=== PATIENT | female | born 1955 | race Two or more races ===

== ENCOUNTER 2017-11-16 12:44 | Observation (INO) | payer OTHER, MEDICAID ==
[~2017-11-16] VITALS: Ht 157.5 cm; Wt 122.5 kg
[2017-11-16 13:26] LABS: Basophils # (auto) 0 uL; Basophils % (auto) 0.2 % (0.0-2.0); Eosinophils # (auto) 0 uL; Hematocrit 42.8 % (36.0-46.0); Monocytes # (auto) 0.5 uL; Neutrophils # (auto) 8.6 uL
[2017-11-16 13:28] LABS: Eosinophils % (auto) 0.3 % (0.0-7.0); Lymphocytes # (auto) 0.7 uL; Lymphocytes % (auto) 7.3 % (10.0-50.0); Mean Corpuscular Hemoglobin 26.6 pg (28.0-32.0); Mean Corpuscular Hgb Conc. 32.8 g/dL (32.0-36.0); Mean Corpuscular Volume 80.9 fL (80.0-100.0); Monocytes % (auto) 5.2 % (0.0-12.0); Platelet Count (auto) 150 10^3/uL (140-450); Red Blood Cells 5.29 10^6/uL (4.0-5.20); Red Cell Distribution Width 14.4 % (11.8-14.3); White Blood Cell 9.9 10^3/uL (4.4-10.8)
[2017-11-16 13:50] LABS: Alanine Aminotransferase 161 U/L (13-56); Albumin 3.4 g/dL (3.4-5.0); Anion Gap 5 (5-15); Aspartate Aminotransferase 338 U/L (15-37); BUN/Creatinine Ratio 23.1; Blood Urea Nitrogen 15 mg/dL (7-18); Calcium 8.8 mg/dL (8.5-10.1); Carbon Dioxide 28 mmol/L (21-32); Chloride 110 mmol/L (98-107); GFR African American 120 mL/min; GFR Non-African American 99 mL/min; Glucose 110 mg/dL (74-106); Magnesium 2.2 mg/dL (1.6-2.6); Potassium 3.7 mmol/L (3.5-5.1); Sodium 143 mmol/L (136-145)
[2017-11-16 13:59] VITALS: BP 124/56
[2017-11-16] MEDS ORDERED: ASPirin 81 mg TAB PO ONE (14:00)
[2017-11-16 14:09] LABS: Alkaline Phosphatase 190 U/L (45-117); Bilirubin, Total 1.2 mg/dL (0.2-1.0); Total Protein 6.8 g/dL (6.4-8.2)
[2017-11-16 14:19] LABS: INR 0.92 (0.9-1.15); Partial Thromboplastin Time 24.8 sec (22.64-33.71)
== END 2017-11-16 18:08 | disposition home or self-care (01) | DRG 556 ==
LOC: ER 12:44 → OVERFLOW 13:46 → ER 18:08
PROVIDERS: ADMIT Family Medicine; ATTEND Family Medicine
DX: M79.1 Myalgia (principal); E66.9 Obesity, unspecified; K22.4 Dyskinesia of esophagus; R94.5 Abnormal results of liver function studies; F41.9 Anxiety disorder, unspecified; Z90.49 Acquired absence of other specified parts of digestive tract; Z85.3 Personal history of malignant neoplasm of breast; Z68.35 Body mass index [BMI] 35.0-35.9, adult
CPT/HCPCS: 36415; 71045; 76705; 80053; 83735; 83880; 84443; 84484; 85025; 85610; 85730; 93005; 99285; G0378